=== PATIENT | female | born 1945 | race Two or more races ===

== ENCOUNTER 2022-03-13 20:16 | Inpatient (IN) | payer OTHER ==
[2022-03-14] MEDS ORDERED: ESCITALOPRAM OX20 MG (08:18)
[2022-03-14] MEDS ORDERED: FENOFIBRATE48 MG (08:18)
[2022-03-14] MEDS ORDERED: PANTOPRAZOLE SO40 MG (08:21)
[2022-03-14] MEDS ORDERED: GABAPENTIN100 M2 (08:21)
[2022-03-14] MEDS ORDERED: LORAZEPAM1 MG (08:21)
[2022-03-14] MEDS ORDERED: LATANOPROST2.5 ML (08:21)
[2022-03-14] MEDS ORDERED: SILVER SULFADIA50 GM (08:21)
[2022-03-14] MEDS ORDERED: REFRESH RELIEVA10 ML (08:21)
== END 2022-03-21 14:33 | disposition home or self-care (01) | DRG 390 ==
LOC: SURG 20:16
PROVIDERS: ADMIT Colon & Rectal Surgery; ATTEND Colon & Rectal Surgery
PROC: 02HV33Z Insertion of Infusion Device into Superior Vena Cava, Percutaneous Approach (ICD-10-PCS; 2022-03-14)
PROC: 3E0436Z Introduction of Nutritional Substance into Central Vein, Percutaneous Approach (ICD-10-PCS; 2022-03-14)
PROC: 0D7E8ZZ Dilation of Large Intestine, Via Natural or Artificial Opening Endoscopic (ICD-10-PCS; principal; 2022-03-19)
DX: K56.600 Partial intestinal obstruction, unspecified as to cause (principal); I10 Essential (primary) hypertension; Z85.038 Personal history of other malignant neoplasm of large intestine; Z20.822 Contact with and (suspected) exposure to COVID-19
CPT/HCPCS: 240

== ENCOUNTER 2022-04-24 10:00 | Inpatient (IN) | payer OTHER ==
[~2022-04-24] VITALS: Ht 157.5 cm; Wt 43.1 kg
[~2022-04-24 10:00] MED LIST: ESCITALOPRAM OX20 MG; FENOFIBRATE48 MG; GABAPENTIN100 M2; LATANOPROST2.5 ML; LORAZEPAM1 MG; PANTOPRAZOLE SO40 MG; REFRESH RELIEVA10 ML; SILVER SULFADIA50 GM
[2022-04-24] MEDS ORDERED: IMODIUM A-D2 M2 PO (14:34)
[2022-04-24] MEDS ORDERED: LEXAP PO (14:35)
[2022-04-30] MEDS ORDERED: FENOFIBRATE48 MG (13:15)
[2022-04-30] MEDS ORDERED: ESCITALOPRAM OX20 MG (13:15)
[2022-04-30] MEDS ORDERED: REFRESH RELIEVA10 ML (13:15)
[2022-04-30] MEDS ORDERED: GABAPENTIN100 M2 (13:15)
[2022-04-30] MEDS ORDERED: LORAZEPAM1 MG (13:15)
[2022-05-07] MEDS ORDERED: LOPERAMIDE2 MG PO (15:40)
[2022-05-07] MEDS ORDERED: OXYCODONE HCL5 MG PO (15:41)
== END 2022-05-07 19:15 | disposition home or self-care (01) | DRG 330 ==
LOC: SURG 04-30 07:00 → O/R 04-30 07:55 → SURG 04-30 10:00
PROVIDERS: ADMIT Colon & Rectal Surgery; ATTEND Colon & Rectal Surgery
PROC: 02HV33Z Insertion of Infusion Device into Superior Vena Cava, Percutaneous Approach (ICD-10-PCS; 2022-05-04)
PROC: 0D1E4Z4 Bypass Large Intestine to Cutaneous, Percutaneous Endoscopic Approach (ICD-10-PCS; principal; 2022-05-07)
PROC: 0DJD8ZZ Inspection of Lower Intestinal Tract, Via Natural or Artificial Opening Endoscopic (ICD-10-PCS; 2022-05-07)
DX: K62.4 Stenosis of anus and rectum (principal); C20 Malignant neoplasm of rectum; E87.6 Hypokalemia; Z85.048 Personal history of other malignant neoplasm of rectum, rectosigmoid junction, and anus; I10 Essential (primary) hypertension; Z93.3 Colostomy status